=== PATIENT | female | born 1990 | race Caucasian/White ===

== ENCOUNTER 2017-03-21 15:28 | Emergency (ER) | payer MEDICAID ==
[~2017-03-21] VITALS: Ht 167.6 cm; Wt 85.7 kg
[2017-03-21 21:04] LABS: BASOPHIL % 0.4 % (0-2)
[2017-03-21 21:12] LABS: PLATELET COUNT 481 x10^3mcL (130-400)
[2017-03-21 21:23] LABS: UA SPECIFIC GRAVITY 1.025 (1.005-1.035); microscopic required? YES; urine erythrocyte 3+ (NEGATIVE)
[2017-03-21 21:52] VITALS: BP 125/67
== END 2017-03-21 21:52 | disposition home or self-care (01) ==
LOC: ED 15:28
PROVIDERS: Emergency Medicine
DX: O20.0 Threatened abortion (principal); Z3A.00 Weeks of gestation of pregnancy not specified
CPT/HCPCS: 36415

== ENCOUNTER 2017-03-23 10:55 | Emergency (ER) | payer OTHER ==
[~2017-03-23] VITALS: Ht 167.6 cm; Wt 86.6 kg
[2017-03-23 12:16] LABS: BASOPHIL % 0.4 % (0-2)
[2017-03-23 12:17] LABS: PLATELET COUNT 433 x10^3mcL (130-400)
[2017-03-23 14:19] VITALS: BP 104/61
== END 2017-03-23 14:10 | disposition home or self-care (01) ==
LOC: ED 10:55
PROVIDERS: Emergency Medicine
DX: O20.0 Threatened abortion (principal); O23.40 Unspecified infection of urinary tract in pregnancy, unspecified trimester; Z3A.00 Weeks of gestation of pregnancy not specified
CPT/HCPCS: 36415

== ENCOUNTER 2018-05-04 17:47 | Emergency (ER) | payer OTHER ==
[~2018-05-04] VITALS: Ht 152.4 cm; Wt 88.9 kg
[2018-05-04 17:49] VITALS: Ht 152.4 cm; Wt 88.9 kg
[2018-05-04 19:01] LABS: BASOPHIL % 0.5 % (0-2); PLATELET COUNT 361 x10^3mcL (130-400)
[2018-05-04 19:02] LABS: RED CELL DISTRIBUTION WIDTH 16.9 % (11.5-14.5)
[2018-05-04 19:54] VITALS: BP 126/67
== END 2018-05-04 19:54 | disposition home or self-care (01) ==
LOC: ED 17:47
PROVIDERS: Emergency Medicine
DX: O03.1 Delayed or excessive hemorrhage following incomplete spontaneous abortion (principal); Z86.2 Personal history of diseases of the blood and blood-forming organs and certain disorders involving the immune mechanism
CPT/HCPCS: 36415; J2210

== ENCOUNTER 2018-05-22 22:42 | Inpatient (IN) | payer OTHER ==
[~2018-05-22] VITALS: Ht 167.6 cm; Wt 87.4 kg
[2018-05-23] VITALS (10 sets, daily range): BP systolic 102–147; BP diastolic 56–79
[2018-05-23 01:08] LABS: microscopic required? YES; urine erythrocyte 3+ (NEGATIVE)
[2018-05-23 01:12] LABS: BASOPHIL % 0.5 % (0-2)
[2018-05-23 01:28] LABS: PLATELET COUNT 421 x10^3mcL (130-400); RED CELL DISTRIBUTION WIDTH 18.2 % (11.5-14.5)
[2018-05-23 01:31] LABS: rbc morphology (normal/abnorm) ABNORMAL (NORMAL)
[2018-05-23 04:51] LABS: AMPHETAMINE QUAL UR NONE DETECTED (See below)
[2018-05-23 05:51] LABS: T3 TOTAL 1.7 ng/mL
[2018-05-23 05:53] LABS: MAGNESIUM 1.7 mg/dL (1.8-2.4); PHOSPHOROUS 3.7 mg/dL (2.5-4.9)
[2018-05-23 06:02] LABS: FREE T4 0.93 ng/dL (0.76-1.46); FREE THYROXINE INDEX 2.7 ug/dL (1.4-4.5)
[2018-05-23 07:57] LABS: ALBUMIN 3.2 g/dL (3.4-5.0); ALKALINE PHOSPHATASE 66 U/L (46-116); ALT/SGPT 26 U/L (14-59); AST/SGOT 12 U/L (15-37); BILIRUBIN TOTAL 0.22 mg/dL (0.20-1.00); CALCIUM 8.5 mg/dL (8.5-10.1); CARBON DIOXIDE 24.3 mmol/L (21-32); CHLORIDE SERUM 109 mmol/L (98-107); CREATININE SERUM 0.7 mg/dL (0.6-1.0); GFR1 > 60 mL/min; GLUCOSE SERUM 110 mg/dL (74-106); POTASSIUM SERUM 3.9 mmol/L (3.5-5.1); SODIUM SERUM 143 mmol/L (136-145); TOTAL PROTEIN, SERUM 6.9 g/dL (6.4-8.2)
[2018-05-23 14:25] LABS: BASOPHIL % 0.6 % (0-2); PLATELET COUNT 396 x10^3mcL (130-400)
[2018-05-23 14:29] LABS: RED CELL DISTRIBUTION WIDTH 18.3 % (11.5-14.5)
[2018-05-23 22:13] LABS: BASOPHIL % 0.1 % (0-2)
[2018-05-23 22:16] LABS: PLATELET COUNT 411 x10^3mcL (130-400); RED CELL DISTRIBUTION WIDTH 18.5 % (11.5-14.5)
[2018-05-24 05:40] VITALS: BP 128/71
[2018-05-24 06:27] LABS: CALCIUM 8.9 mg/dL (8.5-10.1); CARBON DIOXIDE 24.9 mmol/L (21-32); CHLORIDE SERUM 106 mmol/L (98-107); CREATININE SERUM 0.6 mg/dL (0.6-1.0); GFR1 > 60 mL/min; GLUCOSE SERUM 111 mg/dL (74-106); POTASSIUM SERUM 4.3 mmol/L (3.5-5.1); SODIUM SERUM 141 mmol/L (136-145)
[2018-05-24 06:31] LABS: BASOPHIL % 0.1 % (0-2)
[2018-05-24 07:28] LABS: PLATELET COUNT 406 x10^3mcL (130-400); RED CELL DISTRIBUTION WIDTH 18.2 % (11.5-14.5)
[2018-05-24] MEDS ORDERED: KEFLEX500 M1 PO (10:22)
[2018-05-24 10:29] VITALS: BP 106/59
[2018-05-24 10:54] VITALS: BP 106/59
== END 2018-05-24 14:00 | disposition home or self-care (01) | DRG 544 ==
LOC: ED 22:42 → DU 05-23 05:26
PROVIDERS: Emergency Medicine; Internal Medicine; Obstetrics & Gynecology
PROC: 30233N1 Transfusion of Nonautologous Red Blood Cells into Peripheral Vein, Percutaneous Approach (ICD-10-PCS; 2018-05-23)
PROC: 10D17ZZ Extraction of Products of Conception, Retained, Via Natural or Artificial Opening (ICD-10-PCS; principal; 2018-05-23 17:00)
DX: O03.38 Urinary tract infection following incomplete spontaneous abortion (principal); N17.0 Acute kidney failure with tubular necrosis; E44.0 Moderate protein-calorie malnutrition; D62 Acute posthemorrhagic anemia; E83.42 Hypomagnesemia; O03.32 Renal failure following incomplete spontaneous abortion; O03.39 Incomplete spontaneous abortion with other complications; E02 Subclinical iodine-deficiency hypothyroidism
CPT/HCPCS: 84439; G0480; J0696; J1410; J3010; J7030; J7050; P9016; Q0092; Q0163

== ENCOUNTER 2018-06-10 14:24 | Emergency (ER) | payer OTHER ==
[~2018-06-10] VITALS: Ht 170.2 cm; Wt 74.8 kg
[~2018-06-10 14:24] MED LIST: KEFLEX500 M1 PO
[2018-06-10 14:29] VITALS: Ht 170.2 cm; Wt 74.8 kg
[2018-06-10 15:49] LABS: PLATELET COUNT 364 x10^3mcL (130-400)
[2018-06-10 15:54] LABS: CALCIUM 8.7 mg/dL (8.5-10.1); CARBON DIOXIDE 27.4 mmol/L (21-32); CHLORIDE SERUM 105 mmol/L (98-107); GFR1 > 60 mL/min; GLUCOSE SERUM 87 mg/dL (74-106); POTASSIUM SERUM 3.7 mmol/L (3.5-5.1); SODIUM SERUM 141 mmol/L (136-145)
[2018-06-10 15:58] LABS: RED CELL DISTRIBUTION WIDTH 20.8 % (11.5-14.5)
[2018-06-10 15:59] LABS: ALBUMIN 3.5 g/dL (3.4-5.0); ALKALINE PHOSPHATASE 97 U/L (46-116); ALT/SGPT 25 U/L (14-59); AST/SGOT 16 U/L (15-37); BILIRUBIN TOTAL 0.21 mg/dL (0.20-1.00); CHOLESTEROL 155 mg/dL (<200); CHOLESTEROL/HDL RATIO 3.2; HDL CHOLESTEROL 48 mg/dL (40-60); LIPASE 91 IU/L (73-393); TOTAL PROTEIN, SERUM 7.5 g/dL (6.4-8.2); TRIGLYCERIDES 59 mg/dL (<150)
[2018-06-10 16:19] LABS: T3 TOTAL 1.51 ng/mL
[2018-06-10 16:20] LABS: FREE T4 0.94 ng/dL (0.76-1.46); FREE THYROXINE INDEX 2.5 ug/dL (1.4-4.5); T4(THYROXINE) 7.7 ug/dL (4.7-13.3)
[2018-06-10 17:09] LABS: UA SPECIFIC GRAVITY 1.015 (1.005-1.035); microscopic required? YES; urine erythrocyte 3+ (NEGATIVE)
[2018-06-10 17:57] LABS: BAND NEUTROPHIL 3 % (0-10); SEGMENTED NEUTROPHILS 53 % (37-75)
[2018-06-10 17:58] LABS: BASOPHIL 0 % (0-2); MONOCYTE 9 % (0-7); rbc morphology (normal/abnorm) ABNORMAL (NORMAL)
[2018-06-10 17:59] LABS: PLATELET MORPHOLOGY LARGE PLATELET SEEN
[2018-06-10 18:06] VITALS: BP 112/63
== END 2018-06-10 18:06 | disposition home or self-care (01) ==
LOC: ED 14:24
PROVIDERS: Specialist
DX: R07.2 Precordial pain (principal); D64.9 Anemia, unspecified
CPT/HCPCS: 36415; 83880; 84439; Q0092

== ENCOUNTER 2019-05-08 00:20 | Emergency (ER) | payer OTHER ==
[~2019-05-08] VITALS: Ht 170.2 cm; Wt 90.7 kg
[2019-05-08 00:25] VITALS: Ht 170.2 cm; Wt 90.7 kg
[2019-05-08 03:18] LABS: UA SPECIFIC GRAVITY 1.025 (1.005-1.035); microscopic required? YES; urine erythrocyte 2+ (NEGATIVE)
[2019-05-08 04:42] VITALS: BP 104/75
== END 2019-05-08 04:42 | disposition home or self-care (01) ==
LOC: ED 00:20
PROVIDERS: Emergency Medicine
DX: M54.5 Low back pain (principal); R35.0 Frequency of micturition; R11.0 Nausea
CPT/HCPCS: Q0092

== ENCOUNTER 2020-08-09 21:40 | Emergency (ER) | payer OTHER, SELFPAY ==
[~2020-08-09] VITALS: Ht 170.2 cm; Wt 90.7 kg
[2020-08-09 21:42] VITALS: BP 123/72; Ht 170.2 cm; Wt 90.7 kg
== END 2020-08-09 22:50 | disposition home or self-care (01) ==
LOC: ED 21:40
DX: U07.1 COVID-19 (principal); B34.9 Viral infection, unspecified
CPT/HCPCS: U0003

== ENCOUNTER 2020-08-17 01:13 | Emergency (ER) | payer OTHER ==
[~2020-08-17] VITALS: Ht 170.2 cm; Wt 90.7 kg
[2020-08-17 02:17] VITALS: Ht 170.2 cm; Wt 90.7 kg
[2020-08-17 03:43] LABS: BASOPHIL % 0.5 % (0.2-1.3)
[2020-08-17 03:44] LABS: PLATELET COUNT 404 x10^3mcL (179-408); RED CELL DISTRIBUTION WIDTH 15.3 % (12.3-17.7)
[2020-08-17 04:02] LABS: rbc morphology (normal/abnorm) NORMAL (NORMAL)
[2020-08-17 05:51] VITALS: BP 124/76
== END 2020-08-17 05:51 | disposition home or self-care (01) ==
LOC: ED 01:13
DX: N92.0 Excessive and frequent menstruation with regular cycle (principal); N83.202 Unspecified ovarian cyst, left side

== ENCOUNTER 2020-08-20 19:26 | Emergency (ER) | payer OTHER ==
[~2020-08-20] VITALS: Ht 170.2 cm; Wt 90.7 kg
[2020-08-20 19:29] VITALS: BP 134/77; Ht 170.2 cm; Wt 90.7 kg
== END 2020-08-20 20:01 | disposition home or self-care (01) ==
LOC: ED 19:26
DX: U07.1 COVID-19 (principal)